=== PATIENT | male | born 1990 | race Two or more races ===

== ENCOUNTER 2018-11-21 10:24 | Outpatient (CLI) | payer BC | END 2018-11-21 10:29 | disposition home or self-care (01) | LOC: RAD 501 10:24 | DX: M79.641 Pain in right hand (principal) ==

== ENCOUNTER 2018-11-28 16:20 | Outpatient (CLI) | payer BC | END 2018-11-28 16:23 | disposition home or self-care (01) | LOC: RAD 16:20 | DX: S62.324A Displaced fracture of shaft of fourth metacarpal bone, right hand, initial encounter for closed fracture (principal) ==

== ENCOUNTER → 2018-12-05 | Outpatient (CLI) | payer BC | END | disposition home or self-care (01) | LOC: RAD 501 13:45 | DX: S62.324A Displaced fracture of shaft of fourth metacarpal bone, right hand, initial encounter for closed fracture (principal) ==